=== PATIENT | female | born 1935 | race Hispanic/Latino ===

== ENCOUNTER → 2019-05-25 | Outpatient (CLI) | payer MEDICARE ==
[2019-05-12 10:10] LABS: INR 1.06; PROTHROMBIN TIME 14.5 seconds (11.9-14.5)
--- NOTE | 2019-05-12 10:30 | Diagnostic Imaging Report ---
EXAMINATION: PA and lateral views of the chest. COMPARISON: None CLINICAL HISTORY: Preoperative study for kyphoplasty DISCUSSION: Right internal jugular chest port catheter tip projects over the low superior vena cava. Lungs are well-inflated. Calcified granuloma lateral left lung base. No consolidation or effusion. Tortuous thoracic aorta with atherosclerotic calcification. Normal heart size without overt pulmonary edema. Multiple lower thoracic/upper lumbar compression deformities are suboptimally visualized on the lateral radiograph. IMPRESSION: No acute cardiopulmonary abnormality. Multiple thoracolumbar spinal compression deformities, suboptimally visualized. Signed by: Dr. Cayetano Salazar M.D. on 05/12/2019 10:27 AM
[2019-05-12 10:31] LABS: PARTIAL THROMBOPLASTIN TIME 30.4 seconds (23.8-35.5)
[~2019-05-25] MED LIST: CEFPODOXIME; CITALOPRAM HBR20 MG PO; FOLIC ACID0.4 MG PO; HEPARIN SOD (PORCINE) 1000 UNIT/ML SDV ONE; HEPARIN SOD (PORCINE) 5,000 UNIT/ML VIAL ONE; LEVAQUIN500 MG PO; MEGESTROL400 MG/10 PO; MUPIROCIN22 GM TOP; OMEPRAZOLE20 MG PO; ROCEPHIN; ULTRAM 50MG50 MG PO; VITAMIN B-121000 MCG SL; ZOFRAN4 MG PO
--- OUTSIDE RECORDS SUMMARY | 2019-05-25 08:26 | XMS REPORT ---
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 Allergies, Adverse Reactions, Alerts This patient has no known allergies or adverse reactions. Medications This patient has no known medications. Results Test Description Test Time Test Comments Text Results Atomic Results Result Comments CHEST 2 VIEWS 2019-05-12 10:25:00 [place] [address] Patient Name: AMBROCIO HAMEED MR #: [id number] : 1935 Age/Sex: 84/F Req #: [id number] Adm Physician: Ordered by: RICHARDSON RICE MD Report #: [id number] Location: OR Room/Bed: Procedure: [id number] DX/CHEST 2 VIEWS Exam Date: 05/12/19 Exam Time: 0955 REPORT STATUS: Signed EXAMINATION: PA and lateral views of the chest. COMPARISON: None CLINICAL HISTORY: Preoperative study for kyphoplasty DISCUSSION: Right internal jugular chest port catheter tip projects over the low superior vena cava. Lungs are well-inflated. Calcified granuloma lateral left lung base. No consolidation or effusion. Tortuous thoracic aorta with atherosclerotic calcification. Normal heart size without overt pulmonary edema. Multiple lower thoracic/upper lumbar compression deformities are suboptimally visualized on the lateral radiograph. IMPRESSION: No acute cardiopulmonary abnormality. Multiple thoracolumbar spinal compression deformities, suboptimally visualized. Signed by: Dr. Celina Mota M.D. on 05/12/2019 10:27 AM Dictated By: CELINA MOTA MD [id number] Transcribed By: OTIS on 05/12/19 1027 COPY TO: RICHARDSON RICE MD
[2019-05-25 09:30] LABS: BASOPHILS # (AUTO) 0.1 (0.0-0.1); BASOPHILS % 0.5 % (0.0-1.0); EOSINOPHILS # (AUTO) 0.1 (0.0-0.4); EOSINOPHILS % 0.7 % (0.0-6.0); HEMOGLOBIN 8.1 g/dL (12.0-16.0); LYMPHOCYTES # (AUTO) 2.7 (1.0-3.2); LYMPHOCYTES % 25.1 % (18.0-39.1); MEAN CORPUSCULAR HEMOGLOBIN 35.7 pg (28-32); MEAN CORPUSCULAR HGB CONC 35.4 g/dL (31-35); MEAN CORPUSCULAR VOLUME 100.9 fL (81-99); MONOCYTES # (AUTO) 0.9 (0.2-0.8); MONOCYTES % 8.6 % (4.4-11.3); NEUTROPHILS # (AUTO) 6.8 (2.1-6.9); NEUTROPHILS % 63.7 % (38.7-80.0); PLATELET COUNT 210 x10e3/uL (140-360); RED BLOOD COUNT 2.27 x10e6/uL (3.6-5.1); RED CELL DISTRIBUTION WIDTH 12.7 % (11.7-14.4)
[2019-05-25 09:50] LABS: ANION GAP 8.3 mmol/L (8-16); CALCIUM 7.7 mg/dL (8.4-10.2); CREATININE, SERUM 1.91 mg/dL (0.57-1.11); POTASSIUM 3.3 mmol/L (3.5-5.1)
[2019-05-25 09:55] LABS: HEMATOCRIT 22.9 % (34.2-44.1)
[2019-05-25 10:08] LABS: BASOPHILS % 0.4 % (0.0-1.0); EOSINOPHILS # (AUTO) 0.1 (0.0-0.4); EOSINOPHILS % 0.6 % (0.0-6.0); HEMOGLOBIN 8.2 g/dL (12.0-16.0); LYMPHOCYTES # (AUTO) 2.8 (1.0-3.2); LYMPHOCYTES % 24.6 % (18.0-39.1); MEAN CORPUSCULAR HGB CONC 36.1 g/dL (31-35); MEAN CORPUSCULAR VOLUME 99.6 fL (81-99); MONOCYTES % 8.3 % (4.4-11.3); NEUTROPHILS # (AUTO) 7.3 (2.1-6.9); NEUTROPHILS % 64.3 % (38.7-80.0); PLATELET COUNT 208 x10e3/uL (140-360); RED BLOOD COUNT 2.28 x10e6/uL (3.6-5.1); RED CELL DISTRIBUTION WIDTH 12.5 % (11.7-14.4)
[2019-05-25 10:12] LABS: HEMATOCRIT 22.7 % (34.2-44.1)
== END | disposition home or self-care (01) ==
LOC: OR 05-12 08:44 → EDSTATUS 05-12 11:00 → OR 08:24 → RAD 08:24 → EDSTATUS 11:00
PROVIDERS: ATTEND Emergency Medicine
DX: M48.54XA Collapsed vertebra, not elsewhere classified, thoracic region, initial encounter for fracture (principal); M48.56XA Collapsed vertebra, not elsewhere classified, lumbar region, initial encounter for fracture; Z01.810 Encounter for preprocedural cardiovascular examination; Z01.812 Encounter for preprocedural laboratory examination; Z01.818 Encounter for other preprocedural examination; Z53.9 Procedure and treatment not carried out, unspecified reason
CPT/HCPCS: 36415 ×2; 71046; 80048; 85025; 85610; 85730; 93005 ×2; J1644 ×2